=== PATIENT | male | born 1955 | race Caucasian/White ===

== ENCOUNTER → 2017-12-10 01:04 | Outpatient (CLI) | payer BC, SELFPAY ==
--- NOTE | 2017-12-10 14:45 | DI.REPORT_ITS ---
SYMPTOMS/DIAGNOSIS: FAMILY H/O BRAIN ANEURYSM, Z82.0, SPECIAL SCREENING FOR TRAUMATIC BRAIN INJURY, Z13.850 MRI OF THE BRAIN: Routine noncontrast examination was performed. There are no priors for comparison. The ventricles and sulci are within normal limits. There is normal signal in the brain parenchyma. No intracranial hemorrhage or infarct is seen. The ventricles are intact. The basilar cisterns are patent. There is a normal flow void in the mentasta of [place]. The visualized paranasal sinuses are clear. IMPRESSION: Negative MRI of the brain.
== END ==
PROVIDERS: PCP Nurse Practitioner; Visit Provider Nurse Practitioner
DX: Z13.850 Encounter for screening for traumatic brain injury (principal); Z82.49 Family history of ischemic heart disease and other diseases of the circulatory system
CPT/HCPCS: 70551

== ENCOUNTER → 2017-12-27 08:08 | Outpatient (REF) | payer BC, SELFPAY ==
[2017-12-27 13:38] LABS: Cholesterol 165 mg/dL (50-200); HDL Cholesterol 55 mg/dL (40-60); LDL CHOLESTEROL 104 mg/dL (<100); Triglyceride 50 mg/dL (30-150)
== END ==
LOC: NCHCN 08:08
PROVIDERS: PCP Nurse Practitioner; Visit Provider Nurse Practitioner
DX: E78.5 Hyperlipidemia, unspecified (principal)
CPT/HCPCS: 80061; 83721

== ENCOUNTER 2018-02-08 12:44 | Outpatient (REF) | payer BC, SELFPAY ==
[2018-02-08 13:15] LABS: Anion Gap 9.2 mmol/L (3-11); BUN 17 mg/dL (7-18); CO2 26.8 mmol/L (21.0-32.0); CREATININE 0.91 mg/dL (0.70-1.30); Calcium 9.1 mg/dL (8.5-10.1); Chloride 105 mmol/L (98-107); Glucose 103 mg/dL (70-100); Potassium 4.4 mmol/L (3.5-5.1); Sodium 141 mmol/L (136-145)
== END 2018-02-08 13:04 ==
LOC: NCHCN 12:44
PROVIDERS: PCP Nurse Practitioner; Visit Provider Nurse Practitioner Family
DX: I10 Essential (primary) hypertension (principal)
CPT/HCPCS: 80048

== ENCOUNTER 2018-02-14 10:06 | Outpatient (REF) | payer BC, SELFPAY ==
[2018-02-14 18:57] LABS: Anion Gap 9.3 mmol/L (3-11); BUN 20 mg/dL (7-18); CO2 28.7 mmol/L (21.0-32.0); CREATININE 0.83 mg/dL (0.70-1.30); Calcium 9.2 mg/dL (8.5-10.1); Chloride 104 mmol/L (98-107); Glucose 94 mg/dL (70-100); Potassium 4.7 mmol/L (3.5-5.1); Sodium 142 mmol/L (136-145)
== END 2018-02-14 10:26 ==
LOC: NCHCN 10:06
PROVIDERS: PCP Nurse Practitioner; Visit Provider Nurse Practitioner Family
DX: I10 Essential (primary) hypertension (principal)
CPT/HCPCS: 80048

== ENCOUNTER 2018-12-29 21:23 | Outpatient (REF) | payer MEDICARE, BC, SELFPAY ==
[2018-12-29 15:53] LABS: HCT 45.3 % (40.0-50.0); HGB 15.4 g/dL (13.5-17.5); Mean Corpuscular Hemoglobin 30.9 pg (27.0-33.0); Mean Corpuscular Volume 90.8 fL (80-95); Mean Platelet Volume 10.5 fL (8.0-11.0); Platelet Count 260 x1000/uL (130-400); RBC 4.99 m/cumm (4.50-6.00); RBC Distribution Width 14.1 % (11.8-14.1); White Blood Cell Count 5.61 k/cumm (4.4-10.8)
[2018-12-29 15:57] LABS: ALT 60 U/L (16-63); AST 29 U/L (15-37); Albumin 4.1 g/dL (3.4-5.0); Alkaline Phosphatase 68 U/L (46-116); Anion Gap 8.3 mmol/L (3-11); BUN 18 mg/dL (7-18); Bilirubin, Total 0.6 mg/dL (0.2-1.0); CO2 27.7 mmol/L (21.0-32.0); CREATININE 0.94 mg/dL (0.70-1.30); Calcium 8.6 mg/dL (8.5-10.1); Calculated LDL 101 mg/dL; Chloride 107 mmol/L (98-107); Cholesterol 164 mg/dL (50-200); Glucose 94 mg/dL (70-100); HDL Cholesterol 54 mg/dL (40-60); Potassium 4.8 mmol/L (3.5-5.1); Sodium 143 mmol/L (136-145); Total Protein 7.3 g/dL (6.4-8.2); Triglyceride 46 mg/dL (30-150)
== END 2018-12-29 21:43 ==
LOC: NCHCN 21:23
PROVIDERS: PCP Nurse Practitioner; Visit Provider Nurse Practitioner
DX: E78.5 Hyperlipidemia, unspecified (principal)
CPT/HCPCS: 80053; 80061; 85027

== ENCOUNTER 2019-11-21 15:07 | Outpatient (REF) | payer MEDICARE, BC, SELFPAY ==
[2019-11-21 16:17] LABS: ALT 30 U/L (16-63); AST 24 U/L (15-37); Albumin 4.3 g/dL (3.4-5.0); Alkaline Phosphatase 61 U/L (46-116); Anion Gap 5.4 mmol/L (3-11); BUN 19 mg/dL (7-18); Bilirubin, Total 0.9 mg/dL (0.2-1.0); CO2 28.6 mmol/L (21.0-32.0); CREATININE 0.91 mg/dL (0.70-1.30); Calcium 9.5 mg/dL (8.5-10.1); Calculated LDL 96 mg/dL (<100); Chloride 106 mmol/L (98-107); Cholesterol 161 mg/dL (<200); Glucose 89 mg/dL (74-106); HDL Cholesterol 57 mg/dL (40-60); Potassium 4.3 mmol/L (3.5-5.1); Sodium 140 mmol/L (136-145); Total Protein 7.4 g/dL (6.4-8.2); Triglyceride 42 mg/dL (<150)
== END 2019-11-21 15:27 ==
LOC: NCHCN 15:07
PROVIDERS: PCP Nurse Practitioner; Visit Provider Nurse Practitioner
DX: I10 Essential (primary) hypertension (principal); E78.5 Hyperlipidemia, unspecified; Z00.00 Encounter for general adult medical examination without abnormal findings
CPT/HCPCS: 80053; 80061

== ENCOUNTER 2019-12-13 15:15 | Outpatient (REF) | payer MEDICARE, BC, SELFPAY ==
[2019-12-13 20:39] LABS: HCT 43.6 % (40.0-50.0); HGB 15.3 g/dL (13.5-17.5); MCH 31.5 pg (27.0-33.0); MCHC 35.1 % (32.0-36.0); MCV 89.9 fL (80-95); MPV 10.7 fL (8.0-11.0); Platelet Count 246 10^3/uL (130-400); RBC 4.85 10^6/uL (4.36-5.78); RDW 12.4 % (11.8-14.1); RDW-SD 41.3 fL; WBC 7.13 10^3/uL (4.4-10.8)
[2019-12-13 20:58] LABS: ALT 36 U/L (16-63); AST 29 U/L (15-37); Albumin 4.1 g/dL (3.4-5.0); Alkaline Phosphatase 61 U/L (46-116); Anion Gap 8.2 mmol/L (3-11); BUN 19 mg/dL (7-18); Bilirubin, Total 0.6 mg/dL (0.2-1.0); CO2 26.8 mmol/L (21.0-32.0); CREATININE 0.92 mg/dL (0.70-1.30); Calcium 9.1 mg/dL (8.5-10.1); Chloride 104 mmol/L (98-107); Glucose 131 mg/dL (74-106); Potassium 4.3 mmol/L (3.5-5.1); Sodium 139 mmol/L (136-145); TSH (W/Ref FT4) 1.24 uIU/mL (0.36-3.74)
== END 2019-12-13 15:35 ==
LOC: NCHCN 15:15
PROVIDERS: PCP Nurse Practitioner; Visit Provider Nurse Practitioner
DX: R19.7 Diarrhea, unspecified (principal)
CPT/HCPCS: 80053; 85027; 87329; 84443; 87177; 87324

== ENCOUNTER 2020-01-10 12:23 | Outpatient (REF) | payer MEDICARE, BC, SELFPAY ==
[2020-01-10 15:57] LABS: ALT 29 U/L (16-63); AST 20 U/L (15-37); Albumin 4.3 g/dL (3.4-5.0); Alkaline Phosphatase 66 U/L (46-116); Anion Gap 3.1 mmol/L (3-11); BUN 15 mg/dL (7-18); Bilirubin, Total 0.6 mg/dL (0.2-1.0); CO2 31.9 mmol/L (21.0-32.0); CREATININE 0.86 mg/dL (0.70-1.30); Calcium 9.1 mg/dL (8.5-10.1); Calculated LDL 158 mg/dL (<100); Chloride 105 mmol/L (98-107); Cholesterol 227 mg/dL (<200); Glucose 96 mg/dL (74-106); HDL Cholesterol 59 mg/dL (40-60); Sodium 140 mmol/L (136-145); Total Protein 7.3 g/dL (6.4-8.2); Triglyceride 51 mg/dL (<150)
== END 2020-01-10 12:43 ==
LOC: NCHCN 12:23
PROVIDERS: PCP Nurse Practitioner; Visit Provider Nurse Practitioner
DX: E78.5 Hyperlipidemia, unspecified (principal); I10 Essential (primary) hypertension
CPT/HCPCS: 80053; 80061